=== PATIENT | female | born 1970 | race Caucasian/White ===

== ENCOUNTER 2021-10-06 07:00 | Outpatient (CLI) | payer OTHER, SELFPAY | END 2021-10-06 07:01 | disposition home or self-care (01) | LOC: INJ CL 07:02 | PROVIDERS: PCP Family Medicine; Visit Provider Family Medicine | DX: M47.816 Spondylosis without myelopathy or radiculopathy, lumbar region (principal) | CPT/HCPCS: 64493; Q9966 ==

== ENCOUNTER 2022-04-13 08:34 | Outpatient (CLI) | payer OTHER, SELFPAY | END 2022-04-13 08:35 | disposition home or self-care (01) | LOC: INJ CL 08:35 | PROVIDERS: PCP Family Medicine; Visit Provider Family Medicine | DX: M47.816 Spondylosis without myelopathy or radiculopathy, lumbar region (principal) | CPT/HCPCS: 64493; J0702; Q9966 ==

== ENCOUNTER 2023-07-05 08:30 | Outpatient (CLI) | payer OTHER, SELFPAY | END 2023-07-05 08:31 | disposition home or self-care (01) | PROVIDERS: PCP Family Medicine; Visit Provider Family Medicine | DX: M54.16 Radiculopathy, lumbar region (principal); M51.36 Other intervertebral disc degeneration, lumbar region | CPT/HCPCS: 62323; J0702; Q9966 ==

== ENCOUNTER 2023-12-20 09:10 | Outpatient (CLI) | payer OTHER, SELFPAY | END 2023-12-20 09:11 | disposition home or self-care (01) | LOC: INJ CL 09:11 | PROVIDERS: PCP Family Medicine; Visit Provider Family Medicine | DX: M54.16 Radiculopathy, lumbar region (principal); M51.369 Other intervertebral disc degeneration, lumbar region without mention of lumbar back pain or lower extremity pain | CPT/HCPCS: 62323; J0702; Q9966 ==